=== PATIENT | female | born 1950 | race Caucasian/White ===

== ENCOUNTER → 2021-02-16 | Outpatient (CLI) | payer MEDICARE, OTHER ==
[~2021-02-16] MED LIST: AMLODIPINE BES2.5 MG PO; ATORVASTATIN CA40 MG PO; CALCIUM 600 MG1 EACH PO; CARBIDOPA-LEVO1 EA14 PO; CYCLOBENZAPRINE10 MG PO; DAILY VALUE1 EACH PO; ECOTRIN81 MG PO; GINKGO BILOBA40 MG PO; LEVOTHYROXINE125 MCG PO; MELOXICAM7.5 MG PO; VITAMIN D250 MCG PO
== END ==
LOC: SLEEP-COR 10:26
DX: G47.33 Obstructive sleep apnea (adult) (pediatric) (principal)
CPT/HCPCS: 95810